=== PATIENT | male | born 1925 | race Caucasian/White ===

== ENCOUNTER 2016-05-26 12:50 | Observation (INO) | payer OTHER ==
[~2016-05-26] VITALS: Ht 180.3 cm; Wt 97.3 kg
[~2016-05-26 12:50] MED LIST: ALFUZOSIN HCL10 MG PO; ASPIR-LOW81 MG PO; Ascorbic Acid,Ester- PO; Aspirin E.C. PO; B-125000 MC1 SL; BABY ASPIRIN81 M1; CARDIZEM CD,CA240 MG; COUMADIN5 MG PO; CYMBALTA20 MG PO; Cardizem CD,Cartia X PO; Colace PO; DILTIAZEM 24HR240 MG PO; DOK PLUS TABLE1 EACH PO; DOXAZOSIN MESYLA4 MG PO; FLEXERIL10 MG PO; Folvite PO; HYDROCHLOROTHIA25 MG PO; HYDROCODON-ACE1 EAC7 PO; HYDROMORPHO1 MG/1 ML IV; Hydrodiuril,Oretic,E PO; MULTIVITAMIN1 EAC2 PO; Miralax, Glycolax PO; NASONEX17 GM BOTH NARES; NORCO 5/3251 TABLET PO; NORVASC10 MG PO; NORVASC5 MG PO; Norvasc PO; Oscal 500 w/Vitamin PO; PERCOCET 10/1 TABLET PO; PERCOCET 5/31 TABLET PO; POLYETHYLENE GL17 GM PO; PROSTATE 2.4 C1 EACH; Percocet 5/325,Endoc PO; Protonix PO; Senokot S,Pericolace PO; TAZTIA XT240 M1 PO; TRAMADOL HCL E300 M1 PO; TRAMADOL HCL50 MG; TYLENOL REGULA325 MG PO; Theragran PO; ULTRAM50 MG PO; UROXATRAL10 MG PO; VITAMIN D35000 UNIT PO; Vicodin,Norco 5/325 PO; Vitamin D PO
[2016-05-26 14:23] LABS: HEMATOCRIT 41.2 % (38.0-50.0); MCH 29.8 PG (29.0-34.0); MCHC 32.3 G/DL (30.0-36.0); MCV 92.2 FL (86-99); MEAN PLAT.VOLUME 9.5 uM^3 (9.0-12.4); PLATELET COUNT 212 K/uL (156-360); RBC DIS.WIDTH-CV 14.2 % (11.8-14.6); RBC DIS.WIDTH-SD 48.3 % (39-53); RED BLOOD COUNT 4.47 M/uL (4.00-5.50); WHITE BLOOD COUNT 5.8 K/uL (4.1-10.2)
[2016-05-26 14:32] LABS: CHLORIDE 105 mEq/L (99-109); POTASSIUM 5.2 mEq/L (3.7-5.4); SODIUM 138 mEq/L (136-147)
[2016-05-26 14:33] LABS: GLUCOSE 106 mg/dL (70-99)
[2016-05-26 14:35] LABS: ANION GAP 9 MEQ/L (2-14)
[2016-05-26 14:37] LABS: GFR ESTIMATE (CALCULATED) 44 mL/min/
[2016-05-26 14:38] LABS: UREA NITROGEN (BUN) 28 mg/dL (9-23)
[2016-05-26 16:07] LABS: PROTHROMBIN TIME 50.8 (9.2-11.2); PTT 54.5 (25-32)
[2016-05-26 16:11] LABS: INTER. NORMALIZED RATIO 4.8
[2016-05-26 22:24] VITALS: BP 126/60
[2016-05-27 00:36] LABS: HEMATOCRIT 35.4 % (38.0-50.0); MCV 92.9 FL (86-99)
[2016-05-27 03:48] VITALS: BP 137/65
[2016-05-27 06:23] LABS: ALKALINE PHOSPHATASE 93 IU/L (3-129); ANION GAP 6 MEQ/L (2-14); CHLORIDE 105 MEQ/L (99-109); GFR ESTIMATE (CALCULATED) 47 mL/min/; GLUCOSE 84 mg/dL (70-99); POTASSIUM 4.3 MEQ/L (3.7-5.4); SAMPLE HEMOLYSIS CHECK 0; SAMPLE ICTERIC CHECK 0; SAMPLE LIPEMIA CHECK 0; SODIUM 138 MEQ/L (136-147); TOTAL BILIRUBIN 0.4 MG/DL (0.0-1.0); UREA NITROGEN (BUN) 23 mg/dL (9-23)
[2016-05-27 07:25] LABS: HEMATOCRIT 39.2 % (38.0-50.0); MCV 93.6 FL (86-99)
[2016-05-27 07:36] VITALS: BP 144/77
[2016-05-27 07:37] VITALS: BP 144/77
[2016-05-27 08:06] LABS: INTER. NORMALIZED RATIO 3.4; PROTHROMBIN TIME 36.5 (9.2-11.2)
[2016-05-27 11:47] VITALS: BP 114/72; BP 90/53
[2016-05-27 11:54] LABS: MCV 92.2 FL (86-99)
[2016-05-27] MEDS ORDERED: ALFUZOSIN HCL10 MG PO (15:58)
[2016-05-27] MEDS ORDERED: NORVASC10 MG PO (15:58)
[2016-05-27] MEDS ORDERED: WARFARIN SODIUM5 MG PO (15:59)
[2016-05-27] MEDS ORDERED: TRAMADOL HCL50 MG PO (16:01)
[2016-05-27] MEDS ORDERED: CYMBALTA20 MG PO (16:01)
[2016-05-27] MEDS ORDERED: CARDIZEM CD,CA240 MG PO (16:02)
[2016-05-27] MEDS ORDERED: WARFARIN SODIUM1 MG PO (16:03)
[2016-05-27 16:10] VITALS: BP 131/67
== END 2016-05-27 17:15 | disposition home health service (06) ==
LOC: EME 12:50 → EDOF 20:00 → 5WEST 20:00
PROVIDERS: Internal Medicine
DX: K62.5 Hemorrhage of anus and rectum (principal); T45.515A Adverse effect of anticoagulants, initial encounter; I12.9 Hypertensive chronic kidney disease with stage 1 through stage 4 chronic kidney disease, or unspecified chronic kidney disease; N18.3 Chronic kidney disease, stage 3 (moderate); I48.2 Chronic atrial fibrillation; I71.4 Abdominal aortic aneurysm, without rupture; K59.00 Constipation, unspecified; Z79.01 Long term (current) use of anticoagulants; G89.29 Other chronic pain; M54.5 Low back pain; E78.5 Hyperlipidemia, unspecified
CPT/HCPCS: 74177; 80048; 80053; 85014; 85018; 85027; 85610; 85730; 86900; 86901; 93005; 99281; 99285; C9113; G0378; J3430; J7040

== ENCOUNTER → 2016-06-06 | Outpatient (CLI) | payer OTHER ==
[~2016-06-06] VITALS: Ht 180.3 cm; Wt 124.2 kg
[~2016-06-06] MED LIST changes: +CARDIZEM CD,CA240 MG PO; +COUMADIN1 MG PO; +TRAMADOL HCL50 MG PO; +WARFARIN SODIUM1 MG PO; +WARFARIN SODIUM5 MG PO
[2016-06-06 12:00] LABS: PROTHROMBIN TIME 10.2 (9.2-11.2); PTT 26.1 (25-32)
== END | disposition home or self-care (01) ==
LOC: AMB 10:46
PROVIDERS: Anesthesiology
PROC: 0DBM8ZX Excision of Descending Colon, Via Natural or Artificial Opening Endoscopic, Diagnostic (ICD-10-PCS; principal; 2016-06-06)
PROC: 0DBK8ZX Excision of Ascending Colon, Via Natural or Artificial Opening Endoscopic, Diagnostic (ICD-10-PCS; principal; 2016-06-06)
PROC: 0DBL8ZX Excision of Transverse Colon, Via Natural or Artificial Opening Endoscopic, Diagnostic (ICD-10-PCS; principal; 2016-06-06)
DX: D12.2 Benign neoplasm of ascending colon (principal); D12.4 Benign neoplasm of descending colon; D12.3 Benign neoplasm of transverse colon; K64.8 Other hemorrhoids; K57.30 Diverticulosis of large intestine without perforation or abscess without bleeding; K92.1 Melena; F03.90 Unspecified dementia, unspecified severity, without behavioral disturbance, psychotic disturbance, mood disturbance, and anxiety; I48.91 Unspecified atrial fibrillation; I12.9 Hypertensive chronic kidney disease with stage 1 through stage 4 chronic kidney disease, or unspecified chronic kidney disease; N18.9 Chronic kidney disease, unspecified; Z79.01 Long term (current) use of anticoagulants; Z87.891 Personal history of nicotine dependence
CPT/HCPCS: 85610; 85730; 88305

== ENCOUNTER 2016-12-28 07:15 | Emergency (ER) | payer OTHER ==
[~2016-12-28] VITALS: Ht 180.3 cm; Wt 81.0 kg
[2016-12-28 07:44] LABS: EOSINOPHIL COUNT 0.2 K/uL (0-0.3); HEMATOCRIT 40.8 % (38.0-50.0); IMMATURE GRANULOCYTE (%) 0.6 % (0.0-0.7); INSTRUMENT ABS NEUTROPHIL CT 3.7 K/uL; LYMPHOCYTE COUNT 1.2 K/uL (1.0-2.8); MCH 29.7 PG (29.0-34.0); MCHC 32.6 G/DL (30.0-36.0); MCV 91.1 FL (86-99); MEAN PLAT.VOLUME 9.2 uM^3 (9.0-12.4); MONOCYTE (%) 7.4 % (3-12); MONOCYTE COUNT 0.4 K/uL (0-0.8); NEUTROPHIL (%) 67.4 % (45-76); NEUTROPHIL COUNT 3.7 K/uL (1.8-6.4); PLATELET COUNT 198 K/uL (156-360); RBC DIS.WIDTH-CV 14.2 % (11.8-14.6); RBC DIS.WIDTH-SD 47.8 % (39-53); RED BLOOD COUNT 4.48 M/uL (4.00-5.50); WHITE BLOOD COUNT 5.4 K/uL (4.1-10.2)
[2016-12-28 07:54] LABS: CHLORIDE 107 mEq/L (99-109); POTASSIUM 4.2 mEq/L (3.7-5.4); SODIUM 138 mEq/L (136-147)
[2016-12-28 07:55] LABS: GLUCOSE 110 mg/dL (70-99)
[2016-12-28 07:57] LABS: ANION GAP 8 MEQ/L (2-14)
[2016-12-28 07:59] LABS: GFR ESTIMATE (CALCULATED) 41 mL/min/
[2016-12-28 08:00] LABS: UREA NITROGEN (BUN) 28 mg/dL (9-23)
[2016-12-28 08:30] LABS: ADD MIUA? YES; BILIRUBIN NEGATIVE; BLOOD MODERATE; COLOR YELLOW ((YELLOW)); GLUCOSE (STRIP) NEGATIVE; KETONES NEGATIVE; LEUKOCYTES LARGE; NITRITE NEGATIVE; PROTEIN (STRIP) 100; SPECIFIC GRAVITY 1.013 (1.000-1.030); UROBILINOGEN 0.2 MG/DL (0.2-1.0)
[2016-12-28 08:45] LABS: BACTERIA RARE /HPF; EPITHELIAL CELLS NONE SEEN /HPF; MUCUS TRACE /LPF; RED BLOOD CELLS TNTC /HPF (0-5); UCUL ADDED? YES; WHITE BLOOD CELLS TNTC /HPF (0-5)
[2016-12-28] MEDS ORDERED: LEVAQUIN500 MG PO (09:33)
[2016-12-28 09:57] VITALS: BP 148/87
== END 2016-12-28 09:58 | disposition home or self-care (01) ==
LOC: EME 07:15
PROVIDERS: Emergency Medicine
DX: N47.1 Phimosis (principal); N39.0 Urinary tract infection, site not specified; I12.9 Hypertensive chronic kidney disease with stage 1 through stage 4 chronic kidney disease, or unspecified chronic kidney disease; N18.9 Chronic kidney disease, unspecified; E78.5 Hyperlipidemia, unspecified; F03.90 Unspecified dementia, unspecified severity, without behavioral disturbance, psychotic disturbance, mood disturbance, and anxiety; F32.9 Major depressive disorder, single episode, unspecified; Z87.891 Personal history of nicotine dependence
CPT/HCPCS: 80048; 81003; 85025; 87077; 87086; 87147; 87186; 99281; 99284